=== PATIENT | female | born 1960 | race Caucasian/White ===

== ENCOUNTER 2021-07-26 02:57 | Emergency (ER) | payer SELFPAY ==
[~2021-07-26] VITALS: Ht 162.6 cm; Wt 70.3 kg
[2021-07-26 03:20] VITALS: BP 146/85
[2021-07-26] MEDS ORDERED: PERM60CR4 TP (03:30)
== END 2021-07-26 03:37 | disposition home or self-care (01) ==
LOC: ER 03:01
DX: S40.862A Insect bite (nonvenomous) of left upper arm, initial encounter (principal); S40.861A Insect bite (nonvenomous) of right upper arm, initial encounter; Z60.2 Problems related to living alone; W57.XXXA Bitten or stung by nonvenomous insect and other nonvenomous arthropods, initial encounter; Y93.89 Activity, other specified; Y92.89 Other specified places as the place of occurrence of the external cause; Y99.8 Other external cause status

== ENCOUNTER 2021-08-14 20:55 | Emergency (ER) | payer MEDICAID ==
[~2021-08-14] VITALS: Ht 157.5 cm; Wt 68.0 kg
[~2021-08-14 20:55] MED LIST: PERM60CR4 TP
--- NOTE | 2021-08-14 21:10 | NUR ---
TO ER BED 16. [employer] FOR PSYCH EVAL PT CALLED SUICIDAL HOTLINE AND CLAIMED SI. PT DENIED SI ON TRIAGE, PT ON 5150 HOLD BY [employer]. PT CHANGED INTO GOWN. BELONGINGS OBTAINED AND SECURED IN LOCKER. SAFETY PRECAUTIONS IN PLACE. 1:1 SITTER. CONNECTED TO MONITOR. AWAITING MD DE LEON
[2021-08-14 21:43] LABS: BASOPHILS # (AUTO) 0.1 K/uL (0.0-0.2); BASOPHILS % (AUTO) 0.8 % (0.0-2.0); EOSINOPHILS % (AUTO) 2.7 % (0.0-6.0); HEMATOCRIT 34 % (33-45); HEMOGLOBIN 10.9 g/dL (11.5-14.8); LYMPHOCYTES # (AUTO) 1.8 K/uL (0.8-4.8); MEAN CORPUSCULAR HGB CONC 32 g/dl (31.0-36.0); MEAN CORPUSCULAR VOLUME 81 fL (82-100); MONOCYTES # (AUTO) 0.7 K/uL (0.1-1.30); NEUTROPHILS # (AUTO) 5.4 K/uL (1.8-8.9); NEUTROPHILS % (AUTO) 66.5 % (43.0-81.0); PLATELET COUNT (AUTO) 480 K/uL (150-450); RED BLOOD CELL COUNT(AUTO) 4.17 MIL/uL (4.0-5.2); WHITE BLOOD COUNT (AUTO) 8.1 K/uL (4.3-11.0)
[2021-08-14 22:03] LABS: CARBON DIOXIDE 23 mmol/L (21-32); CHLORIDE 104 mmol/L (98-107); CREATININE 0.7 mg/dL (0.6-1.3); GLUCOSE 92 mg/dL (74-106); POTASSIUM 3.8 mmol/L (3.5-5.1); SODIUM SERUM 138 mmol/L (136-145); UREA NITROGEN, BLOOD 9 mg/dL (7-18)
--- NOTE | 2021-08-14 22:07 | NUR ---
COVID ANTIGEN SWAB COLLECTED AND SENT TO LAB
--- NOTE | 2021-08-14 22:07 | NUR ---
URINE SAMPLE COLLECTED AND SENT TO LAB
[2021-08-14] MEDS ORDERED: OLANZAPINE 5 MG TABLET ONE (22:12)
[2021-08-14 22:17] LABS: ALANINE AMINOTRANSFERASE 36 U/L (12-78); ALKALINE PHOSPHATASE 94 U/L (46-116); ASPARTATE AMINOTRANSFERASE 14 U/L (15-37); BILIRUBIN,TOTAL 0.1 mg/dL (0.2-1.0); TOTAL PROTEIN, SERUM 7.7 g/dL (6.4-8.2)
[2021-08-14 22:20] LABS: ACETAMINOPHEN 0 ug/ml (10-30); ALCOHOL, BLOOD < 3 mg/dL (0-0)
[2021-08-14] MEDS ORDERED: OLANZAPINE 5 MG TABLET PO ONE ×2 (22:30)
[2021-08-14 22:44] LABS: BILIRUBIN,URINE NEGATIVE (NEGATIVE); COLOR,URINE YELLOW (YELLOW); LEUKOCYTE ESTERASE ,URINE TRACE (NEGATIVE); NITRITE, URINE NEGATIVE (NEGATIVE); PH,URINE 6.5 (5.0-8.0); PROTEIN,URINE NEGATIVE (NEGATIVE); UGLUCOSE NEGATIVE (NEGATIVE); UROBILINOGEN,URINE 0.2 EU/dL (0.2)
--- NOTE | 2021-08-15 00:30 | NUR ---
PT IS ASLEEP, EASILY AROUSABLE. CONNECTED TO MONITOR. VSS
[2021-08-15] MEDS ORDERED: LORAZEPAM 1 MG TABLET ONE (01:00)
[2021-08-15] MEDS ORDERED: DULOXETINE HCL 30 MG CAPSULE.DR PO ONE (01:00)
[2021-08-15] MEDS ORDERED: LORAZEPAM 1 MG TABLET PO ONE (01:00)
[2021-08-15] MEDS ORDERED: DULOXETINE HCL 30 MG CAPSULE.DR ONE (01:01)
[2021-08-15] MEDS ORDERED: LEVETIRACETAM (250 MG) 250 MG TABLET PO ONE ×2 (01:30)
--- NOTE | 2021-08-15 02:54 | NUR ---
PT AMBULATED TO BATHROOM, STEADY GAIT NOTED
[2021-08-15 06:14] LABS: BACTERIA,URINE Rare /HPF (None Seen); RBC,URINE 0-2 /HPF (0-2); SQUAMOUS EPITHELIAL CELL,UR Moderate /HPF (None Seen)
[2021-08-15 07:26] VITALS: BP 132/77
--- NOTE | 2021-08-15 07:26 | NUR ---
Patient discharged to home in stable condition. Written and verbal after care instructions given. Patient verbalizes understanding of instruction.
== END 2021-08-15 07:28 | disposition home or self-care (01) ==
LOC: ER 20:59
DX: R45.851 Suicidal ideations (principal); Z20.822 Contact with and (suspected) exposure to COVID-19; F17.200 Nicotine dependence, unspecified, uncomplicated; F90.9 Attention-deficit hyperactivity disorder, unspecified type; I10 Essential (primary) hypertension; F32.A Depression, unspecified; D75.839 Thrombocytosis, unspecified; Z86.69 Personal history of other diseases of the nervous system and sense organs
CPT/HCPCS: 36415; 80048; 80076; 80143; 80307; 80320; 81001; 85025; 87426; 99285; C9803; G0480